=== PATIENT | male | born 1945 | race Caucasian/White ===

== ENCOUNTER → 2018-01-03 | Outpatient (CLI) | payer MEDICARE, OTHER ==
[~2018-01-03] MED LIST: ACIPHEX 20 MG T20 M1 PO; ACIPHEX 20 MG T20 MG PO; AMLODIPINE-ATO1 EAC8 PO; ASPIR 8181 MG PO; BRILINTA90 MG PO; CLEOCIN HCL300 MG PO; CRESTOR10 MG PO; DOXYCYCLINE 10100 MG PO; LIPITOR 20 MG T20 M1 PO; LYRICA 50 MG50 MG PO; LYRICA150 MG PO; MS CONTIN 30 MG30 M1 PO; PLAVIX 75 MG TA75 MG PO; RAPAFLO8 MG PO; ROXICODONE15 MG PO; VENTOLIN HFA INH8 GM IH; ZPAK PO
== END ==
LOC: M.CT 15:30
DX: K57.92 Diverticulitis of intestine, part unspecified, without perforation or abscess without bleeding (principal); Z85.9 Personal history of malignant neoplasm, unspecified

== ENCOUNTER → 2018-04-19 | Outpatient (CLI) | payer MEDICARE, OTHER ==
--- NOTE | 2018-04-19 15:54 | CARDNUC ---
[place] [address] CARDIAC NUCLEAR IMAGING REPORT Name: HERIBERTO FORD Room: [facility]#: [id number] Admission: 04/19/18 Attend Phys: Santy Weber MD Discharge: Date of : 47 Date of Service: 04/19/18 1553 Report #: [id number] THIS REPORT FOR: //name// APPROVED REPORT Imaging Protocol: Rest Tc-99m/Stress Tc-99m 1 day Study performed: 04/19/2018 13:00:00 Indication: follow up post stent Patient Location: Out-Patient Stress Tech: Lesvia Joseph Stress Nurse: Triniadd Beal RN Ht: 5 ft 10 in Wt: 149 lbs BSA: 1.84 m2 BMI: 21.37 Medical History Medical History: cad, hyperlipidemia, hypertension,pvd,ckd, copd Medications: amlodipine, atorvastatin, clopidogrel Allergies: sulfa Cardiac Risk Factors: age,hyperlipidemia, hypertension. pvd, tobacco Previous Cardiac Procedures: pci Exercise History: Indeterminate Resting Data Rest SPECT myocardial perfusion imaging was performed in supine position 30 minutes following the intravenous injection of 10.5 mCi of Tc-99m Sestamibi. Time of rest injection: 13:15 The images were gated to evaluate regional wall motion and calculate left ventricular ejection fraction. Administration Route: IV Administration Site: Left Wrist Pharmacologic Stress Pharmacologic stress test was performed by injecting Regadenoson 0.4 mg IV push over 10-15 seconds immediately followed by the intravenous injection of 34.6 mCi of Tc-99m Sestamibi. Time of stress injection: 14:30 Administration Route: IV Administration Site: Left Wrist Heart Rate at time of stress injection: 103 bpm. Gated Stress SPECT was performed 40 [place] [address] CARDIAC NUCLEAR IMAGING REPORT Name: HERIBERTO FORD Room: [facility]#: [id number] Admission: 04/19/18 Attend Phys: Santy Weber MD Discharge: Date of : 47 Date of Service: 04/19/18 1553 Report #: [id number] injection. The images were gated to evaluate regional wall motion and calculate left ventricular ejection fraction. Prone imaging was performed. Stress Test Details Stress Test: Pharmacologic stress testing performed using 0.4 mg of regadenoson per 5 mL given IV over 10 seconds. Reason for pharmacologic stress test: physical limitation. HR Max Heart Rate (APMHR): 148 bpm Resting HR: 73 bpm Target HR (85% APMHR): 125 bpm Max HR Achieved: 103 bpm % of APMHR: 69 Recovery HR: 91 bpm HR response to stress: Normal HR response to stress BP Resting BP: 153/81 mmHg Max BP: 126/68 mmHg Recovery BP: 124/66 mmHg BP response to stress: Normal blood pressure response to stress. ECG Resting ECG: nsr rbbb Stress ECG: nsr rbbb ST Change: none Recovery ECG: nsr rbbb Recovery ST Change: none Clinical Reason for Termination: Completed protocol Stress Symptoms: None Exercise duration: 0 min sec Exercise capacity: 1 METs Nurse Comments pt cannot walk on treadmill due to chronic back pain Stress ECG Conclusion nondiagnostic Study Quality Study: Fair Artifact: Mild Increased GI uptake Lung Uptake: [place] [address] CARDIAC NUCLEAR IMAGING REPORT Name: HERIBERTO FORD Room: [facility]#: [id number] Admission: 04/19/18 Attend Phys: Santy Weber MD Discharge: Date of : 47 Date of Service: 04/19/18 1553 Report #: [id number] Study Data At rest, the left ventricular ejection fraction was 67%.. Post stress, the left ventricular ejection was 69%.. SSS: 4 SRS: 2 SDS: 2 TID = 1.09. Perfusion STRESS SPECT images show a small mild intensity inferior defect which is noted to be fixed when compared to the SPECT rest images. There is uniform uptake of tracer in all other segments. The prone set shows normalization of the inferior defect indicating it is likely artifact. No reversible defects are seen. Images were reviewed using [employer]. Wall Motion normal all segments Nuclear Conclusion ECG Findings: non-diagnostic Clinical Findings: negative for ischemia Nuclear Findings: negative for ischemia Exercise Capacity: not assessed Left Ventricular Function: normal Risk Study: low Negative perfusion nuclear stress test for ischemia or infarct. <Conclusion> nondiagnostic <ELECTRONICALLY SIGNED> By: Rick Langston MD, [facility] 04/19/18 1553 1553 1553 Rick Langston MD, FAC /INF
== END ==
LOC: M.NUC
DX: I25.10 Atherosclerotic heart disease of native coronary artery without angina pectoris (principal); E78.5 Hyperlipidemia, unspecified; I12.9 Hypertensive chronic kidney disease with stage 1 through stage 4 chronic kidney disease, or unspecified chronic kidney disease; N18.9 Chronic kidney disease, unspecified; J44.9 Chronic obstructive pulmonary disease, unspecified; Z95.5 Presence of coronary angioplasty implant and graft; Z87.891 Personal history of nicotine dependence

== ENCOUNTER → 2018-05-15 | Outpatient (CLI) | payer MEDICARE, OTHER | LOC: M.CT 13:33 | DX: J43.2 Centrilobular emphysema (principal); I25.10 Atherosclerotic heart disease of native coronary artery without angina pectoris; Z87.891 Personal history of nicotine dependence ==